=== PATIENT | female | born 1985 | race American Indian/Alaskan Native ===

== ENCOUNTER 2020-07-15 15:08 | Inpatient (IN) | payer OTHER, SELFPAY ==
[~2020-07-15] VITALS: Ht 152.4 cm; Wt 69.4 kg
[2020-07-15] MEDS: LR 1,000 ML IV SCH ×2 (16:15→22:59)
[2020-07-15 16:50] LABS: BASOPHILS % (AUTO) 0.3 % (0.0-2.0); EOSINOPHILS # (AUTO) 0.1 K/uL (0.0-0.4); EOSINOPHILS % (AUTO) 0.8 % (0.0-4.0); HEMATOCRIT 36.6 % (36-48); HEMOGLOBIN 12.3 g/dL (12.0-16.0); LYMPHOCYTES # (AUTO) 2.6 K/uL (1.0-5.5); LYMPHOCYTES % (AUTO) 19.4 % (20.5-51.5); MEAN CORPUSCULAR HEMOGLOBIN 31 pg (27-31); MEAN CORPUSCULAR HGB CONC 34 % (32-36); MEAN CORPUSCULAR VOLUME 91 fL (79.0-98.0); MONOCYTES # (AUTO) 1.1 K/uL (0.0-1.0); MONOCYTES % (AUTO) 8.1 % (1.7-9.3); NEUTROPHILS # (AUTO) 9.6 K/uL (1.8-7.7); NEUTROPHILS % (AUTO) 71.4 % (40.0-70.0); PLATELET COUNT (AUTO) 293 K/uL (130-430); RED BLOOD CELL COUNT(AUTO) 4.02 MIL/uL (4.2-6.2); RED CELL DISTRIBUTION WIDTH 13.1 % (9.0-15.0); WHITE BLOOD COUNT (AUTO) 13.4 K/uL (4.8-10.8)
[2020-07-15 17:41] LABS: ALBUMIN 2.6 g/dL (3.4-4.8); CREATININE 0.71 mg/dL (0.55-1.30); POTASSIUM 4.5 mmol/L (3.5-5.1); TOTAL BILIRUBIN 0.3 mg/dL (0.0-1.0)
[2020-07-15 17:44] VITALS: BP_SYST 104
[2020-07-16] MEDS: LR 1,000 ML IV SCH ×3 (06:39→22:44)
[2020-07-17] MEDS: LR 1,000 ML IV SCH ×2 (07:45→16:30)
[2020-07-17 10:06] LABS: HEPATITIS B SURFACE AG Negative (Negative)
[2020-07-18] MEDS: LR 1,000 ML IV SCH ×2 (00:05→07:52)
== END 2020-07-18 17:37 | disposition home or self-care (01) | DRG 833 ==
LOC: SPU 15:08
PROVIDERS: ADMIT Specialist; ATTEND Specialist
PROC: 10H07YZ Insertion of Other Device into Products of Conception, Via Natural or Artificial Opening (ICD-10-PCS; principal; 2020-07-15)
DX: O41.03X0 Oligohydramnios, third trimester, not applicable or unspecified (principal); Z20.822 Contact with and (suspected) exposure to COVID-19; Z3A.34 34 weeks gestation of pregnancy
CPT/HCPCS: 36415; 76815; 80053; 81002-TC; 85025; 86592; 87340; 87536; J7120